=== PATIENT | female | born 1955 | race Two or more races ===

== ENCOUNTER 2018-05-09 09:48 | Outpatient (CLI) | payer OTHER | END 2018-05-09 11:20 | disposition home or self-care (01) | LOC: NUCLEAR 09:48 | DX: K82.4 Cholesterolosis of gallbladder (principal) | CPT/HCPCS: 78227; A9537; J2805 ==

== ENCOUNTER 2018-05-16 09:32 | Outpatient (CLI) | payer OTHER | END 2018-05-16 10:00 | disposition home or self-care (01) | LOC: NUCLEAR 09:32 | DX: E21.2 Other hyperparathyroidism (principal) | CPT/HCPCS: 78070; A9500 ==

== ENCOUNTER 2018-07-28 13:19 | Outpatient (CLI) | payer OTHER | END 2018-07-28 13:25 | disposition home or self-care (01) | LOC: NUCLEAR 13:19 | DX: M81.0 Age-related osteoporosis without current pathological fracture (principal) ==

== ENCOUNTER 2020-05-29 09:50 | Outpatient (CLI) | payer OTHER | END 2020-05-29 10:00 | disposition home or self-care (01) | LOC: NUCLEAR 09:50 | PROVIDERS: ATTEND Surgery | DX: M81.8 Other osteoporosis without current pathological fracture (principal); E21.0 Primary hyperparathyroidism ==

== ENCOUNTER 2020-12-20 07:46 | Outpatient (CLI) | payer OTHER | END 2020-12-20 08:26 | disposition home or self-care (01) | LOC: RAD 07:46 | PROVIDERS: ATTEND Internal Medicine Endocrinology, Diabetes & Metabolism | DX: M81.0 Age-related osteoporosis without current pathological fracture (principal) ==

== ENCOUNTER 2024-07-27 13:04 | Outpatient (CLI) | payer OTHER | END 2024-07-27 13:07 | disposition home or self-care (01) | LOC: NUCLEAR 13:04 | PROVIDERS: ATTEND Internal Medicine Endocrinology, Diabetes & Metabolism | DX: M85.59 Aneurysmal bone cyst, multiple sites (principal); Z13.820 Encounter for screening for osteoporosis; M81.0 Age-related osteoporosis without current pathological fracture ==